=== PATIENT | female | born 1990 | race Caucasian/White ===

== ENCOUNTER 2021-03-08 08:52 | Emergency (ER) | payer OTHER ==
[2021-03-08 10:42] LABS: BASOPHIL 0.3 % (0-2); EOSINOPHIL 0.1 % (0-5); HCT 33.7 % (37.0-47.0); HGB 11.8 g/dl (12.5-16.0); LYMPHOCYTE 9.4 % (15-48); MCH 30.5 pg (25.0-31.0); MCV 87.1 fL (78.0-100.0); MONOCYTE 4.1 % (0-12); MPV 9.1 fL (6.0-9.5); NEUTROPHIL 85.6 % (41-80); NRBC 0; PLT 302 K/uL (150-400); RBC 3.87 M/uL (4.20-5.40); RDW 13.4 % (11.5-14.0)
[2021-03-08 11:13] LABS: PRO-BNP 295 pg/mL (<125)
[2021-03-08 11:15] LABS: BILIRUBIN NEGATIVE (NEGATIVE); BLOOD NEGATIVE Ery/uL (NEGATIVE); CLARITY CLEAR (CLEAR); COLOR YELLOW (YELLOW); GLUCOSE (U) NORMAL (NORMAL); LEUKOCYTES NEGATIVE Leu/uL (NEGATIVE); NITRITE NEGATIVE (NEGATIVE); PROTEIN 1+ mg/dL (NEGATIVE); SPECIFIC GRAVITY >=1.030 (1.001-1.030); UROBILINOGEN 0.2 mg/dL (0.2-1.0); pH 5.5 (5.0-9.0)
[2021-03-08 11:17] LABS: ECSTASY (MDMA) POSITIVE (NEGATIVE); MARIJUANA (THC) NEGATIVE (NEGATIVE); METHADONE NEGATIVE (NEGATIVE); OPIATES NEGATIVE (NEGATIVE)
[2021-03-08 11:18] LABS: AMPHETAMINES POSITIVE (NEGATIVE); BARBITURATES NEGATIVE (NEGATIVE); OXYCODONE NEGATIVE (NEGATIVE)
[2021-03-08 11:24] LABS: ALBUMIN 3.8 g/dL (3.4-5.0); ALKALINE PHOSHATASE 35 U/L (46-116); ALT 53 U/L (14-59); AST 87 U/L (15-37); BILIRUBIN - TOTAL 1.1 mg/dL (0.2-1.0); BUN 20 mg/dL (7-18); CHLORIDE 101 mmol/L (98-107); CO2 (BICARBONATE) 19 mmol/L (21-32); GLOBULIN (CALCULATION) 3.4 g/dL; GLUCOSE 101 mg/dL (74-106); LDH 388 U/L (81-234); MAGNESIUM 2.1 mg/dL (1.8-2.4); POTASSIUM 3.8 mmol/L (3.5-5.1); TOTAL PROTEIN 7.2 g/dL (6.4-8.2)
[2021-03-08 11:25] LABS: ACETAMINOPHEN (TYLENOL) < 2.0 ug/mL (10.0-30.0)
[2021-03-08 11:26] LABS: MUCOUS TRACE
[2021-03-08 11:27] LABS: AMORPHOUS URATES CRYSTALS TRACE
[2021-03-08 11:31] LABS: LACTIC ACID 0.6 mmol/L (0.4-1.9)
== END 2021-03-09 14:32 | disposition home or self-care (01) ==
LOC: FER 08:52
PROVIDERS: Emergency Medicine
DX: F15.129 Other stimulant abuse with intoxication, unspecified (principal); F23 Brief psychotic disorder; M62.82 Rhabdomyolysis; Z20.822 Contact with and (suspected) exposure to COVID-19
CPT/HCPCS: 36415; 36600; 70450; 71045; 80053; 80305; 81001; 82550; 82728; 82803; 83605; 83615; 83735; 83880; 84145; 84484; 84703; 85025; 86140; 93005; 96372; G0480; J1200; J1630; J2060; J3411; J3475; J3486; J7030; J7120; U0002